=== PATIENT | male | born 1955 | race Caucasian/White ===

== ENCOUNTER → 2016-03-03 14:42 | Outpatient (CLI) | payer MEDICAID ==
[2015-11-10 10:13] VITALS: BMI 25.7
[~2016-03-03 14:42] MED LIST: ASPIRIN 81 MG E81 MG PO; CORTISPORIN OTI10 M1 RIGHT EAR; DAYPRO600 MG PO; FLEXERIL5 MG; FLUTICASONE PRO16 GM NASAL; GAVILYTE-C SO4000 ML PO; HYDROCODON-ACE1 EAC7 PO; HYDROCODONE-APA1 TAB PO; LIPITOR10 MG PO; PRAVACHOL20 MG PO; RELAFEN500 MG PO; VITAMIN D31000 UNIT; XELODA500 MG PO
== END | disposition home or self-care (01) ==
LOC: D.MRI 14:42
DX: R51 Headache (principal)

== ENCOUNTER → 2016-09-01 07:39 | Outpatient (CLI) | payer MEDICAID ==
[2015-11-10 10:13] VITALS: BMI 25.7
== END | disposition home or self-care (01) ==
LOC: D.US 07:39
DX: R10.9 Unspecified abdominal pain (principal); R19.7 Diarrhea, unspecified

== ENCOUNTER → 2016-09-18 08:48 | Day surgery (SDC) | payer MEDICAID ==
[~2016-09-18] VITALS: Ht 172.7 cm; Wt 79.4 kg
--- NOTE | ~2016-09-18 | OP ---
PATIENT NAME: GIANCARLO MAN MEDICAL RECORD: [id number] :51 LOCATION:[facility] ADMISSION DATE: SURGEON: JOSE SALES MD DATE OF OPERATION: 09/18/2016 PREOPERATIVE DIAGNOSES: 1. Gallstones. 2. Hypercholesterolemia. 3. History of rectal cancer. POSTOPERATIVE DIAGNOSES: 1. Gallstones. 2. Hypercholesterolemia. 3. History of rectal cancer. PROCEDURE: Laparoscopic cholecystectomy. SURGEON: Jose Sales MD REPORT OF PROCEDURE: The patient's abdomen was prepped and draped in sterile fashion then a cutdown was made on the superior aspect of the umbilicus, 0 Vicryls were placed in the fascia bilaterally and the fascia was incised with a 15-blade. I then bluntly entered the peritoneal cavity and placed a 12-mm Maggie port. Under direct visualization, a 5-mm trocar was placed in the epigastrium and 2 more 5-mm trocars were placed in the right subcostal region. The gallbladder was grasped and elevated and showed no signs of any inflammatory changes. The cystic artery and cystic duct were dissected free and these were clipped proximally and distally and ligated in standard fashion. The gallbladder was taken off the liver bed using electrocautery and placed into the right upper quadrant. Any bleeding from the liver bed was treated with electrocautery. We then irrigated out the right upper quadrant and assured there was no sign of any bleeding or bile leakage. At this point, the ports and insufflation were then removed and the gallbladder was taken out through the umbilicus. The umbilical fascia was closed with interrupted 0 Vicryls times 3. The wounds were irrigated out with normal saline, infused with 10 mL of 0.25% Marcaine with epinephrine. The skin incisions were closed with subcutaneous 5-0 Monocryl and dressed appropriately. COMPLICATIONS: None. CONDITION: Stable. ANESTHESIA: General endotracheal and local. ESTIMATED BLOOD LOSS: Minimal. TRANSINT:[id number] Voice Confirmation ID: [id number] DOCUMENT ID: [id number] OPERATIVE REPORT [id number] GIANCARLO MAN JOSE SALES MD CC: NILDA BARNETT MD [id number] DICTATION DATE: 09/18/161406 PRIVATE EQUITY ANALYST: 09/18/161942 [id number] [place] [address]
[~2016-09-18 08:48] MED LIST changes: +ALLEGRA-D1 TAB.SR1 PO
[2016-09-18 09:26] LABS: BASOPHILS 0.5 % (0-2); EOSINOPHILS 2.1 % (0-7); HEMATOCRIT 43.4 % (42.0-54.0); HEMOGLOBIN 14.6 g/dL (13.5-17.5); IMMATURE GRANULOCYTES 0.5 % (0-5); LYMPHOCYTES 24.3 % (15-50); MCH 31.1 pg (26.0-34.0); MCHC 33.6 g/dL (31.0-37.0); MCV 92.5 fL (80.0-100.0); MEAN PLATELET VOLUME 10.1 fL (7.4-10.4); MONOCYTES 11.3 % (2-11); NEUTROPHILS 61.3 % (40-80); PLATELET COUNT 172 10x3/uL (130-400); RBC 4.69 10x6/uL (4.20-6.10); RDW 12.7 % (11.5-14.5); WBC 4.3 10x3/uL (4.8-10.8)
[2016-09-18 09:31] LABS: CALC OSMOLALITY 281 mosm/kg (275-300); CALCIUM 8.9 mg/dL (8.5-10.1); CARBON DIOXIDE 32.8 mmol/L (21.0-32.0); CHLORIDE - SERUM 103 mmol/L (98-107); GLUCOSE 103 mg/dL (74-106); POTASSIUM - SERUM 4.3 mmol/L (3.5-5.1); SODIUM 140 mmol/L (136-145); UREA NITROGEN 20 mg/dL (7-18); eGFR NON AFRICAN AMERICAN 80 mL/min (90-120)
[2016-09-18 09:52] VITALS: BP 132/78; Ht 172.7 cm; Wt 79.4 kg
--- NOTE | 2016-09-18 16:35 | NUR ---
1600 DISCHARGE INSTRUCTIONS GIVEN. PRESCRIPTION FOR [facility] GIVEN. THEY HAVE NO QUESTIONS OR CONCERNS AT THIS TIME. ESCORTED OUT BY VOLUNTEER,
== END | disposition home or self-care (01) ==
LOC: D.OPS 08:48
PROVIDERS: Surgery
DX: K80.80 Other cholelithiasis without obstruction (principal); E78.00 Pure hypercholesterolemia, unspecified; Z85.048 Personal history of other malignant neoplasm of rectum, rectosigmoid junction, and anus; R19.7 Diarrhea, unspecified; L05.91 Pilonidal cyst without abscess; Z01.812 Encounter for preprocedural laboratory examination

== ENCOUNTER → 2016-12-22 08:54 | Outpatient (CLI) | payer MEDICAID ==
[2016-09-18 09:52] VITALS: BMI 26.6
== END | disposition home or self-care (01) ==
LOC: D.CT 08:54
DX: C20 Malignant neoplasm of rectum (principal)